=== PATIENT | male | born 1985 | race Asian ===

== ENCOUNTER 2016-12-03 23:49 | Emergency (ER) | payer BC ==
[~2016-12-03 23:49] MED LIST: FLEXERIL DPS5 MG PO; NORCO 5-325 TA1 EACH PO
--- NOTE | 2016-12-07 11:58 | ER ---
ADMIT: 12/03/2016 RM/LOC: [facility] MR#: [id number] [address] [id number] [address]GG MARES [address] [place] [id number] Emergency Room Report SEX: M AGE: 31 : 1985 DATE: 12/03/2016 Please refer to the main dictation by MARC Shukla, the patient was signed out to me. The patient is a 31-year-old male , who was brought to the ER with chief complaint of lightheadedness and allegedly syncope, and the patient states that he became lightheaded and dizzy and had some headaches and nausea and became unresponsive for a few seconds and after that, he did regain consciousness. Allegedly in the ER, the patient's symptoms have completely resolved. EKG was negative, the patient was already put on Holter monitoring, and the patient was signed out to follow up on the lab works. The patient lab work was positive for mild hypokalemia, and the patient received K-Dur p.o. in the ER 40 mEq, the rest of the lab works was noncontributory and negative. The patient was symptom free, and he is in no distress and was already put on Holter monitor. The patient was discharged home to follow up with the primary doctor as scheduled. Ruben Abel MD/ narciso JOB #: [id number] CC: Ruben Abel MD, Attending Physician Pranay Dunn MD, Family Physician
== END 2016-12-04 01:46 | disposition home or self-care (01) ==
LOC: ER 23:49
DX: R42 Dizziness and giddiness (principal); Z88.0 Allergy status to penicillin